=== PATIENT | female | born 1985 | race African-American/Black ===

== ENCOUNTER 2019-11-13 08:03 | Emergency (ER) | payer MEDICAID ==
[~2019-11-13] VITALS: Ht 157.5 cm; Wt 77.0 kg
[2019-11-13 08:07] VITALS: BP 125/82
[2019-11-13] MEDS ORDERED: IBUPROFEN 600MG TABLET PO ONE (08:45)
== END 2019-11-13 08:55 | disposition home or self-care (01) ==
LOC: ER 08:18
DX: M25.532 Pain in left wrist (principal); M25.531 Pain in right wrist; M25.522 Pain in left elbow; M25.521 Pain in right elbow; M79.89 Other specified soft tissue disorders; R03.0 Elevated blood-pressure reading, without diagnosis of hypertension
CPT/HCPCS: 99282

== ENCOUNTER 2020-06-28 09:26 | Emergency (ER) | payer MEDICAID ==
[~2020-06-28] VITALS: Ht 157.5 cm; Wt 72.0 kg
[2020-06-28] MEDS ORDERED: IBUPROFEN 600MG TABLET PO STA (10:07)
[2020-06-28] MEDS ORDERED: SODIUM CHLORIDE 0.9% 1,000 ML IV ONE (10:15)
[2020-06-28 10:27] LABS: BASOPHILS % 0.7 % (0.0-2.0); EOSINOPHILS % 0.9 % (0.0-5.0); HEMATOCRIT. 35.1 % (36.0-48.0); LYMPHOCYTES % 27.4 % (20.0-50.0); MEAN CORPUSCULAR HEMOGLOBIN 30.5 pg (28.0-32.0); MEAN CORPUSCULAR VOLUME 89.2 fL (81.0-99.0); MEAN PLATELET VOLUME 8.2 fl (7.4-10.4); MONOCYTES % 5.4 % (2.0-8.0); NEUTROPHILS % 65.6 % (40.0-76.0); PLATELET 334 x1000/uL (130-400); RED BLOOD CELL COUNT 3.93 mill/uL (4.2-5.4); RED CELL DISTRIBUTION WIDTH 12.6 % (11.6-14.6)
[2020-06-28 10:29] LABS: CLARITY URINE CLEAR (CLEAR); COLOR URINE YELLOW (YELLOW); KETONES URINE NEGATIVE (NEGATIVE); LEUKOCYTE ESTERASE URINE NEGATIVE (NEGATIVE); NITRITE URINE NEGATIVE (NEGATIVE); OCCULT BLOOD URINE NEGATIVE (NEGATIVE); PROTEIN URINE NEGATIVE (NEGATIVE); SPECIFIC GRAVITY URINE 1.017 (1.005-1.030); UROBILINOGEN URINE 0.2 E.U./dL (0.2-1.0)
[2020-06-28 10:34] LABS: CHLORIDE 106 mEq/L (98-107)
[2020-06-28 10:38] LABS: ETHANOL BLOOD < 10 mg/dL
[2020-06-28 10:42] LABS: HCG SCREEN NEGATIVE
[2020-06-28 10:46] LABS: *AMPHETAMINES SCREEN URINE NEGATIVE (NEGATIVE); *BARBITURATES SCREEN URINE NEGATIVE (NEGATIVE); *BENZODIAZEPINES SCREEN URINE NEGATIVE (NEGATIVE); *COCAINE SCREEN URINE NEGATIVE (NEGATIVE); METHADONE URINE SCREEN NEGATIVE (NEGATIVE); OPIATES URINE SCREEN NEGATIVE (NEGATIVE); PHENCYCLIDINE URINE SCREEN NEGATIVE (NEGATIVE)
[2020-06-28 10:47] LABS: CANNABINOID URINE SCREEN PRESUMTIVE POSITIVE (NEGATIVE)
[2020-06-28 11:38] VITALS: BP 101/64
[2020-06-28] MEDS ORDERED: IBUP-2029 MT (11:40)
== END 2020-06-28 11:55 | disposition home or self-care (01) ==
LOC: ER 10:15
DX: R07.89 Other chest pain (principal); M25.532 Pain in left wrist; M25.531 Pain in right wrist; M79.622 Pain in left upper arm; M79.621 Pain in right upper arm; M79.605 Pain in left leg; M79.604 Pain in right leg; Z98.890 Other specified postprocedural states; Z79.899 Other long term (current) drug therapy
CPT/HCPCS: 36415; 71045; 73100; 80053; 80305; 80320; 81003; 81025; 84703; 85025; 93005; 99285; J7030; Z7610; G0480

== ENCOUNTER 2020-07-27 10:05 | Inpatient (IN) | payer MEDICAID ==
[~2020-07-27] VITALS: Ht 157.5 cm; Wt 74.0 kg
[~2020-07-27 10:05] MED LIST: IBUP-2029 MT
[2020-07-27 11:07] LABS: CLARITY URINE CLEAR (CLEAR); COLOR URINE YELLOW (YELLOW); KETONES URINE NEGATIVE (NEGATIVE); LEUKOCYTE ESTERASE URINE NEGATIVE (NEGATIVE); NITRITE URINE NEGATIVE (NEGATIVE); OCCULT BLOOD URINE NEGATIVE (NEGATIVE); PH URINE 6.5 (4.5-8.0); PROTEIN URINE NEGATIVE (NEGATIVE); SPECIFIC GRAVITY URINE 1.017 (1.005-1.030); UROBILINOGEN URINE 0.2 E.U./dL (0.2-1.0)
[2020-07-27 11:23] LABS: BASOPHILS % 0.6 % (0.0-2.0); EOSINOPHILS % 2.5 % (0.0-5.0); HEMATOCRIT. 33.4 % (36.0-48.0); HEMOGLOBIN. 11.5 g/dL (12.0-16.0); LYMPHOCYTES % 27.7 % (20.0-50.0); MEAN CORPUSCULAR HEMOGLOBIN 30.8 pg (28.0-32.0); MEAN CORPUSCULAR VOLUME 89.2 fL (81.0-99.0); MEAN PLATELET VOLUME 7.6 fl (7.4-10.4); MONOCYTES % 6.3 % (2.0-8.0); NEUTROPHILS % 62.9 % (40.0-76.0); PLATELET 371 x1000/uL (130-400); RED BLOOD CELL COUNT 3.75 mill/uL (4.2-5.4); RED CELL DISTRIBUTION WIDTH 13.2 % (11.6-14.6)
[2020-07-27 11:28] LABS: CHLORIDE 106 mEq/L (98-107)
[2020-07-27 11:33] LABS: INR 1.1; PROTHROMBIN TIME 11.8 sec (9.6-11.0)
[2020-07-27] MEDS ORDERED: VANCOMYCIN 1 G PREMIX 200 ML IV SCH (14:45)
[2020-07-27] MEDS ORDERED: LEVOFLOXACIN 750MG PREMIX 150 ML IV ONE (14:45)
[2020-07-27] MEDS ORDERED: MORPHINE SULFATE 2 MG/ML CPJ (NOT FOR IM USE) IV PRN (16:00)
[2020-07-27] MEDS ORDERED: IPRATROPIUM/ALBUTEROL 0.5-3(2.5)MG/3ML NEB HHN PRN (16:00)
[2020-07-27] MEDS ORDERED: ACETAMINOPHEN 325MG TABLET PO PRN (16:00)
[2020-07-27] MEDS ORDERED: ONDANSETRON HCL 4MG/2ML INJ IV PRN (16:00)
[2020-07-27] MEDS ORDERED: DIPHENHYDRAMINE 50MG/ML VIAL IV PRN (16:00)
[2020-07-27] MEDS ORDERED: CLONIDINE 0.1MG TABLET PO PRN (16:00)
[2020-07-27] MEDS ORDERED: CEFTRIAXONE 1 G PREMIX 50 ML IV SCH (17:00)
[2020-07-27] MEDS ORDERED: AZITHROMYCIN 500 MG in DEXT 5% WATER 250 ML IV SCH (18:00)
[2020-07-28 00:25] VITALS: BP 107/65
[2020-07-28 04:00] VITALS: BP 100/57
[2020-07-28 06:48] LABS: CHLORIDE 103 mEq/L (98-107)
[2020-07-28 06:56] LABS: LDL CHOLESTEROL 94 mg/dL (5-100)
[2020-07-28 06:57] LABS: HDL CHOLESTEROL 32 mg/dL (40-59)
[2020-07-28 07:01] LABS: BASOPHILS % 0.7 % (0.0-2.0); EOSINOPHILS % 2.8 % (0.0-5.0); HEMATOCRIT. 33.2 % (36.0-48.0); HEMOGLOBIN. 11.5 g/dL (12.0-16.0); LYMPHOCYTES % 23.8 % (20.0-50.0); MEAN CORPUSCULAR HEMOGLOBIN 30.6 pg (28.0-32.0); MEAN CORPUSCULAR VOLUME 88.2 fL (81.0-99.0); MEAN PLATELET VOLUME 8.7 fl (7.4-10.4); MONOCYTES % 3.9 % (2.0-8.0); NEUTROPHILS % 68.8 % (40.0-76.0); PLATELET 350 x1000/uL (130-400); RED BLOOD CELL COUNT 3.76 mill/uL (4.2-5.4); RED CELL DISTRIBUTION WIDTH 13.2 % (11.6-14.6)
[2020-07-28 08:00] VITALS: BP 106/65
[2020-07-28] MEDS ORDERED: INFLUENZA VACCINE 05/PF 0.5 ML VIAL IM ONE (12:00)
[2020-07-28] MEDS ORDERED: PNEUMOCOCCAL 23-VAL P-SAC VAC 0.5 ML IM ONE (12:00)
[2020-07-28 12:18] VITALS: BP 107/64
[2020-07-28] MEDS ORDERED: AZITHROMYCIN 500 MG TABLET PO SCH (18:00)
[2020-07-30 13:07] LABS: ANA IFA Positive (.); ANA SPECKLED PATTERN >1:1280 (.)
[2020-08-27] MEDS ORDERED: FOLI-43 PO (10:22)
[2020-08-27] MEDS ORDERED: HYDR200T35 PO (10:22)
[2020-08-27] MEDS ORDERED: METO-539 PO (10:22)
[2020-08-27] MEDS ORDERED: P20 MT (10:22)
== END 2020-07-28 13:30 | disposition left against medical advice (07) | DRG 139 ==
LOC: ER 10:10 → 5WST 15:55 → EDBEDREQ 15:59 → EDBEDREQTM 15:59 → ENRESERV 21:11
PROVIDERS: ADMIT Internal Medicine; ATTEND Internal Medicine
PROC: 0W993ZZ Drainage of Right Pleural Cavity, Percutaneous Approach (ICD-10-PCS; principal; 2020-07-28)
DX: J18.9 Pneumonia, unspecified organism (principal); J96.00 Acute respiratory failure, unspecified whether with hypoxia or hypercapnia; K76.0 Fatty (change of) liver, not elsewhere classified; J91.8 Pleural effusion in other conditions classified elsewhere; R59.1 Generalized enlarged lymph nodes; F17.200 Nicotine dependence, unspecified, uncomplicated; M06.9 Rheumatoid arthritis, unspecified; Z20.822 Contact with and (suspected) exposure to COVID-19; Z53.29 Procedure and treatment not carried out because of patient's decision for other reasons; Z98.891 History of uterine scar from previous surgery; Z79.899 Other long term (current) drug therapy
CPT/HCPCS: 32555; 36415; 71045; 71250; 74176; 76700; 80053; 80061; 81003; 82040; 83615; 83880; 83986; 84443; 84484; 85025; 86256; 87426; 88108; 88312; 93005; 93970; 99285; J0456; J0696; J1956; J2270; J3370; J7060

== ENCOUNTER 2021-01-04 11:55 | Emergency (ER) | payer MEDICAID ==
[~2021-01-04] VITALS: Ht 157.5 cm; Wt 75.0 kg
[~2021-01-04 11:55] MED LIST changes: +FOLI-43 PO; +HYDR200T35 PO; +METO-539 PO; +P20 MT
[2021-01-04 12:05] VITALS: BP 110/69
== END 2021-01-04 22:09 | disposition left against medical advice (07) ==
LOC: ER 11:55
DX: Z53.21 Procedure and treatment not carried out due to patient leaving prior to being seen by health care provider (principal); R06.02 Shortness of breath; R00.0 Tachycardia, unspecified
CPT/HCPCS: 93005

== ENCOUNTER 2021-01-19 08:04 | Emergency (ER) | payer MEDICAID ==
[~2021-01-19] VITALS: Ht 157.5 cm; Wt 73.0 kg
[2021-01-19 08:47] LABS: BASOPHILS % 1.1 % (0.0-2.0); EOSINOPHILS % 1.3 % (0.0-5.0); HEMATOCRIT. 41.6 % (36.0-48.0); LYMPHOCYTES % 31.5 % (20.0-50.0); MEAN CORPUSCULAR VOLUME 89.2 fL (81.0-99.0); MEAN PLATELET VOLUME 7.5 fl (7.4-10.4); NEUTROPHILS % 62.1 % (40.0-76.0); PLATELET 436 x1000/uL (130-400); RED BLOOD CELL COUNT 4.66 mill/uL (4.2-5.4); RED CELL DISTRIBUTION WIDTH 13.1 % (11.6-14.6)
[2021-01-19 08:54] LABS: CHLORIDE 105 mEq/L (98-107)
[2021-01-19 09:55] LABS: CLARITY URINE CLOUDY (CLEAR); COLOR URINE YELLOW (YELLOW); KETONES URINE NEGATIVE (NEGATIVE); LEUKOCYTE ESTERASE URINE NEGATIVE (NEGATIVE); NITRITE URINE NEGATIVE (NEGATIVE); OCCULT BLOOD URINE 2+ (NEGATIVE); PH URINE 5.5 (4.5-8.0); PROTEIN URINE 4+ (NEGATIVE); SPECIFIC GRAVITY URINE 1.029 (1.005-1.030); UROBILINOGEN URINE 0.2 E.U./dL (0.2-1.0)
[2021-01-19 10:00] VITALS: BP 101/69
[2021-01-19] MEDS ORDERED: PANT40TA51 MT (10:30)
== END 2021-01-19 11:07 | disposition home or self-care (01) ==
LOC: ER 08:04
DX: K21.9 Gastro-esophageal reflux disease without esophagitis (principal); L93.0 Discoid lupus erythematosus; I10 Essential (primary) hypertension; Z98.890 Other specified postprocedural states
CPT/HCPCS: 36415; 71045; 80053; 81003; 83880; 84484; 85025; 85651; 93005; 99285

== ENCOUNTER 2022-02-06 23:15 | Emergency (ER) | payer MEDICAID, OTHER ==
[~2022-02-06] VITALS: Ht 157.5 cm; Wt 98.7 kg
[~2022-02-06 23:15] MED LIST changes: +PANT40TA51 MT
[2022-02-06 23:17] VITALS: BP 132/84
[2022-02-07] MEDS ORDERED: ASPIRIN 81MG TABLET PO ONE
[2022-02-07 00:39] LABS: BASOPHILS % 0.9 % (0.0-2.0); EOSINOPHILS % 0.8 % (0.0-5.0); MEAN CORPUSCULAR HEMOGLOBIN 30.6 pg (28.0-32.0); MEAN PLATELET VOLUME 8.7 fl (7.4-10.4); MONOCYTES % 5.3 % (2.0-8.0); PLATELET 308 x1000/uL (130-400); RED BLOOD CELL COUNT 4.56 mill/uL (4.2-5.4); RED CELL DISTRIBUTION WIDTH 13.1 % (11.6-14.6)
[2022-02-07 00:48] LABS: CHLORIDE 102 mEq/L (98-107)
[2022-02-07] MEDS ORDERED: IOHEXOL-350 100 ML BOTTLE ONE (01:43)
== END 2022-02-07 03:11 | disposition home or self-care (01) ==
LOC: ER 23:28
DX: R07.2 Precordial pain (principal); R94.31 Abnormal electrocardiogram [ECG] [EKG]; J98.11 Atelectasis; I10 Essential (primary) hypertension; M32.9 Systemic lupus erythematosus, unspecified
CPT/HCPCS: 36415; 71045; 71275; 80053; 81025; 83880; 84484; 85025; 85379; 93005; 99285; Q9967; Z7610

== ENCOUNTER 2022-12-27 14:00 | Emergency (ER) | payer MEDICAID, OTHER ==
[~2022-12-27] VITALS: Ht 160 cm; Wt 91.0 kg
[2022-12-27 14:07] VITALS: BP 135/85; O2SAT 100
[2022-12-27 14:39] LABS: HEMATOCRIT. 41.6 % (36.0-48.0); HEMOGLOBIN. 13.7 g/dL (12.0-16.0); MEAN CORPUSCULAR HEMOGLOBIN 30.2 pg (28.0-32.0); MEAN CORPUSCULAR VOLUME 91.4 fL (81.0-99.0); MEAN PLATELET VOLUME 9.4 fl (7.4-10.4); PLATELET 256 x1000/uL (130-400); RED BLOOD CELL COUNT 4.55 mill/uL (4.2-5.4); RED CELL DISTRIBUTION WIDTH 13.4 % (11.6-14.6); WHITE BLOOD COUNT 10.8 x1000/uL (4.5-11.0)
[2022-12-27 14:40] LABS: DIFFERENTIAL COMMENT 1
[2022-12-27 14:48] LABS: PROTHROMBIN TIME 10.9 sec (9.6-11.0)
[2022-12-27 15:28] LABS: PLATELET ESTIMATE NORMAL
[2022-12-27 16:36] LABS: CHLORIDE 108 mEq/L (98-107); INDEX HEMOLYSI 1 (1-3); INDEX ICTERIC 1 (1-4); INDEX LIPEMIC 1 (1-3); POTASSIUM 3.6 mEq/L (3.5-5.1); SODIUM 138 mEq/L (136-145)
[2022-12-27 16:43] LABS: ALANINE AMINOTRANSFERASE 18 IU/L (13-61); ALBUMIN 2.1 g/dL (3.4-5.0); ASPARTATE AMINOTRANSFERASE 19 IU/L (15-37); BILIRUBIN TOTAL 0.3 mg/dL (0.1-1.0); CALCIUM 7.7 mg/dL (8.5-10.1); CARBON DIOXIDE 29 mEq/L (21-32); CREATININE 0.7 mg/dL (0.6-1.3); GLUCOSE 101 mg/dL (70-105); PROTEIN TOTAL 6.4 g/dL (6.0-8.3); TROPONIN I HIGH SENSITIVITY 9 ng/L (<54); UREA NITROGEN BLOOD 7 mg/dL (7-21)
[2022-12-27 17:20] LABS: HCG SCREEN NEGATIVE
[2022-12-27 17:51] LABS: CLARITY URINE CLEAR (CLEAR); COLOR URINE YELLOW (YELLOW); GLUCOSE URINE NEGATIVE (NEGATIVE); KETONES URINE NEGATIVE (NEGATIVE); LEUKOCYTE ESTERASE URINE NEGATIVE (NEGATIVE); NITRITE URINE NEGATIVE (NEGATIVE); OCCULT BLOOD URINE 2+ (NEGATIVE); PROTEIN URINE 4+ (NEGATIVE); SPECIFIC GRAVITY URINE 1.023 (1.005-1.030); UROBILINOGEN URINE 0.2 E.U./dL (0.2-1.0)
[2022-12-27 18:11] LABS: BACTERIA URINE 1+; SQUAMOUS EPITHELIAL CELL URINE 1+ /lpf (RARE/1+); WBC URINE 0-2 /hpf (0-2)
[2022-12-27 19:46] VITALS: PULSE 99; RESP 18; TEMP 98.3
[2022-12-27] MEDS ORDERED: IOHEXOL-350 100 ML BOTTLE ONE (23:03)
== END 2022-12-27 19:48 | disposition home or self-care (01) ==
LOC: ER 14:00
DX: R07.89 Other chest pain (principal); I10 Essential (primary) hypertension; Z98.890 Other specified postprocedural states
CPT/HCPCS: 80053; 81003; 81025; 84703; 85025; 85379; 85610; 84484; 36415; 71045; 93005; 99285; Q9967; Z7610

== ENCOUNTER 2023-02-17 07:32 | Emergency (ER) | payer MEDICAID ==
[~2023-02-17] VITALS: Ht 154.9 cm; Wt 102.0 kg
[2023-02-17 08:00] VITALS: TEMP 99; O2SAT 100
[2023-02-17] MEDS ORDERED: METH-653 MT (09:11)
[2023-02-17] MEDS ORDERED: IBUPROFEN 600MG TABLET PO ONE (09:15)
[2023-02-17 09:21] VITALS: BP 134/92; PULSE 92; RESP 18
== END 2023-02-17 09:25 | disposition home or self-care (01) ==
LOC: ER 08:19
DX: M54.2 Cervicalgia (principal); I10 Essential (primary) hypertension; Z87.01 Personal history of pneumonia (recurrent); Z98.890 Other specified postprocedural states
CPT/HCPCS: 99282; 99283